=== PATIENT | male | born 1940 | race Caucasian/White ===

== ENCOUNTER → 2022-04-25 12:18 | Outpatient (CLI) | payer OTHER, SELFPAY ==
--- NOTE | 2022-04-25 | DI.ECHO.S_ITS ---
[facility] +---------+ : : [address] : : : : [id number] : : : : Phone: [phone]---------+ Echocardiogram Report + + :Name: AUSTIN ZARAGOZA Study Date: 04/25/2022 Height: 68 in : :[facility] ReadingLocation: Weight: 250 lb : : Gender: Male BSA: 2.2 m2 : :: 1940 Age: 81 yrs BP: 146/87 mmHg: :Reason For Study: Hypertension : :Ordering Physician: CAMILO, : :CATE Ferguson Performed By: Rad Levy : :Referring: CATE PAGE : + + Interpretation Summary A two-dimensional transthoracic echocardiogram with color flow and Doppler was performed in limited views only. The left ventricle is normal in size and wall thickness. Left ventricular systolic function is normal. The ejection fraction is estimated to be 60-65%. There are no obvious focal wall motion abnormalities noted but poor endocardial definition reduces the sensitivity for the detection of such. The right ventricle is normal in size and function. Pulmonary artery pressures cannot be estimated because of the lack of a measurable TR jet velocity. Both atria are normal in size. There is no significant valvular heart disease. The aortic root is not well visualized. Procedure: A two-dimensional transthoracic echocardiogram with color flow and Doppler was performed in limited views only. The study quality was technically adequate. Comparison is made with the echocardiogram of 04/28/2012. The heart rate ranged between 90 bpm during the study. Left Ventricle: The left ventricle is normal in size and wall thickness. Left ventricular systolic function is normal. The ejection fraction is estimated to be 60-65%. There are no obvious focal wall motion abnormalities noted but poor endocardial definition reduces the sensitivity for the detection of such. Diastolic function could not be accurately assessed due to unobtainable data. Right Ventricle: The right ventricle is normal in size and function. Atria: Both atria are normal in size. The interatrial septum grossly appears intact with no obvious evidence for an atrial septal defect. Mitral Valve: The mitral valve is normal in structure and function. There is no mitral regurgitation noted. Aortic Valve: The aortic valve is normal in structure and function. No aortic regurgitation is present. Tricuspid Valve: The tricuspid valve is normal in structure and function. There is a trace or physiologic amount of tricuspid regurgitation. Pulmonary artery pressures cannot be estimated because of the lack of a measurable TR jet velocity. Pulmonic Valve: The pulmonic valve is normal in structure and function. There is no pulmonic valvular regurgitation. There is no significant valvular heart disease. Great Vessels: The aortic root is not well visualized. The ascending aorta could not be visualized. Severe atherosclerotic plaque(s) in the aortic arch. The IVC is of normal diameter and collapses greater than 50% with a sniff. This suggests a low right atrial pressure of 3 mm Hg. Pericardium/ Pleura There is no pericardial effusion. There is no pleural effusion. MMode/2D Measurements & Calculations LVIDd: 4.8 cm LVOT diam: 2.2 cm LVIDs: 3.0 cm FS: 37.5 % IVSd: 1.0 cm LVPWd: 1.1 cm LV porras. diameter/BSA (cm/m^2): 2.1 LV sys. diameter/BSA (cm/m^2): 1.3 LA dimension: 3.8 cm RA long axis: 5.7 cm LA A2 area: 18.0 cm2 LA A4 area: 21.4 cm2 LA length (vol): 5.2 cm LA vol: 62.9 ml LA vol index: 28.0 ml/m2 TAPSE_phl: 1.8 cm Doppler Measurements & Calculations Ao V2 max: 142.0 cm/sec LVOT Max Jasper: 104.0 cm/sec Ao V2 mean: 93.1 cm/sec LV V1 max P.3 mmHg Ao max P.0 mmHg LV V1 VTI: 18.2 cm Ao mean P.0 mmHg SHANNAN(I,D): 3.0 cm2 Ao V2 VTI: 23.5 cm SHANNAN(V,D): 2.9 cm2 sev ratio: 0.77 SHANNAN indexed to BSA (cm^2/m^2): 1.3 SV(LVOT): 70.9 ml AV VR_phl: 0.73 SHANNAN(VTI)/BSA_phl: 1.4 Reading Physician:01:54 PM
== END ==
PROVIDERS: Family Provider Family Medicine; PCP Family Medicine; Referring Provider Family Medicine; Visit Provider Family Medicine
DX: J96.10 Chronic respiratory failure, unspecified whether with hypoxia or hypercapnia (principal); I70.0 Atherosclerosis of aorta; G47.33 Obstructive sleep apnea (adult) (pediatric); I10 Essential (primary) hypertension
CPT/HCPCS: 93306

== ENCOUNTER 2024-03-05 00:50 | Emergency (ER) | payer OTHER, SELFPAY ==
[2024-03-05 01:03] VITALS: BP 121/61; PULSE 70; RESP 20; TEMP 36.6; O2SAT 94; BMI 26.6
--- NOTE | 2024-03-05 01:15 | ED_ITS ---
HPI - General Adult General Chief complaint: Extremity Injury, Upper Stated complaint: RT ARM BLEEDING Time Seen by Provider: 03/05/24 01:02 Source: patient and family Mode of arrival: Ambulatory History of Present Illness HPI narrative: Patient is an 83-year-old male here for evaluation of a skin tear to his right arm/elbow. This occurred after he took multiple medications this evening to try to help him sleep. He tried to get up and became somewhat dizzy and hit his right arm. No other injuries from the event. Denied hit his head. Review of Systems Musculoskeletal Musculoskeletal: Reports system reviewed and no additional complaints, except as documented Integumentary/Breasts Skin/Breast: Reports system reviewed and no additional complaints, except as documented Neurologic Neurologic: Reports system reviewed and no additional complaints, except as documented Patient History Social History Smoking Status: Never smoker Smoking Status: Never smoker Substance Use Type: does not use Exam Initial Vital Signs Initial Vital Signs: Vital Signs Temperature 98 F 03/05/24 01:03 Pulse Rate 70 03/05/24 01:03 Respiratory Rate 20 03/05/24 01:03 Blood Pressure 121/61 03/05/24 01:03 Pulse Oximetry 94 03/05/24 01:03 Oxygen Delivery Method Room Air 03/05/24 01:03 Const General: cooperative Skin Other: Large irregular skin tear to the lateral aspect of the right elbow. Extrem Other: Full range of motion of the right elbow Course Orders Ordered: Discontinued Medications Acetaminophen (Acetaminophen 325 Mg Tablet) 650 mg PO NOW ONE Stop: 03/05/24 01:17 Last Admin: 03/05/24 01:23 Dose: 650 mg Documented By: Bacitracin (Bacitracin Oint 0.9 Gm Pckt) 1 applic TOP NOW ONE Stop: 03/05/24 01:17 Last Admin: 03/05/24 01:22 Dose: 1 applic Documented By: Vital Signs Vital signs: Vital Signs - 8 hr 03/05/24 01:03 03/05/24 01:35 Temperature 98 F 98.4 F Pulse Rate 70 66 Respiratory Rate 20 18 Blood Pressure 121/61 154/87 H Pulse Oximetry 94 95 Oxygen Delivery Method Room Air Room Air Medical Decision Making [facility] Narrative Medical decision making narrative: Patient has a large irregular skin tear to the right elbow. The skin over top of the area was approximated as best as possible and the edges were approximated with Steri-Strips. Unfortunately this would not be amenable to stitches. This was lightheadedness associated with all the medications that he takes in order to help him sleep. No radiologic studies as he does have full range of motion his elbow. Patient was given care instructions and return precautions. He expressed understanding and agreement. Discharge Plan Departure Patient Disposition: Home Clinical Impression: Skin tear Activity Restrictions/Additional Instructions: You can continue to put topical antibiotic ointment over the wounds. You can bathe like normal however I would recommend that you leave the bandage on the wound for the next couple days. You can take Tylenol or ibuprofen for discomfort. Return to the emergency department for new symptoms. Referrals: Ellis Mclain MD [Primary Care Provider] - Stand Alone Forms: Patient Portal/API
[2024-03-05] MEDS: BACITRACIN OINT 0.9 GM PCKT 1 APPLIC TOP (01:22)
[2024-03-05] MEDS: ACETAMINOPHEN 325 MG TABLET 650 MG PO (01:23)
[2024-03-05 01:35] VITALS: BP 154/87; PULSE 66; RESP 18; TEMP 36.9; O2SAT 95
== END 2024-03-05 01:36 | disposition home or self-care (01) ==
PROVIDERS: Emergency Provider Emergency Medicine; Family Provider Family Medicine; PCP Family Medicine
DX: S51.011A Laceration without foreign body of right elbow, initial encounter (principal); W22.8XXA Striking against or struck by other objects, initial encounter
CPT/HCPCS: 99283